=== PATIENT | male | born 1985 | race Caucasian/White ===

== ENCOUNTER 2018-05-13 06:25 | Emergency (ER) | payer SELFPAY ==
[~2018-05-13] VITALS: Ht 190.5 cm; Wt 127.0 kg
[2018-05-13] MEDS ORDERED: HYDROMORPHONE 1 MG/1 ML DISP.SYRIN ONE (06:40)
[2018-05-13] MEDS ORDERED: ONDANSETRON 4 MG/2 ML VIAL ONE (06:40)
[2018-05-13] MEDS ORDERED: HYDROMORPHONE 1 MG/1 ML DISP.SYRIN IM ONE (06:45)
[2018-05-13] MEDS ORDERED: ONDANSETRON 4 MG/2 ML VIAL IM ONE (06:45)
--- NOTE | 2018-05-13 06:45 | NUR ---
Patient is AAOx4. Patient speaking in complete sentences, speech is clear. No neurologic deficits. Patient comes in with c/o R shoulder pain, and lower back pain s/p slipping outside of his house while taking out the trash around [id number] last night. Pain is 10/10. LROM in RUE. Patient ambulated with stable gait. Respirations are even and unlabored. No SOB, cough, or congestion. No cardiovascular distress noted. All pulses present and palpable. No GI/ distress. Patient is in bed with side rails up x2, and in the lowest setting. Fall precautions initiated per protocol.
--- NOTE | 2018-05-13 07:09 | NUR ---
Patient discharged to home in stable conditon. Written and verbal after care instructions given. Patient verbalizes understanding of instructions. Ambulated from ER with stable gait. All belongings with patient.
[2018-05-13 07:10] VITALS: BP 121/78
== END 2018-05-13 07:10 | disposition home or self-care (01) ==
LOC: ER 06:27
DX: M25.511 Pain in right shoulder (principal); M54.5 Low back pain; Z88.8 Allergy status to other drugs, medicaments and biological substances; W10.9XXA Fall (on) (from) unspecified stairs and steps, initial encounter; Y93.89 Activity, other specified; Y92.89 Other specified places as the place of occurrence of the external cause; Y99.8 Other external cause status
CPT/HCPCS: 72100; 73020; 96372 ×2; 99283; J1170; J2405; A4663

== ENCOUNTER 2022-08-22 20:04 | Emergency (ER) | payer MEDICAID, OTHER ==
[~2022-08-22] VITALS: Ht 190.5 cm; Wt 108.9 kg
--- NOTE | 2022-08-22 21:10 | NUR ---
Pt is noted alert, responsive as he came in C/O Anxiety , Chest Pain, Insomnia x4days with withdrawing as he has noted been taken his medications x 5days, therefore needs Refills for Ativan 2mg PO and Subuxone 8.5mg . Pt care continue as awaits MD orders.
[2022-08-22] MEDS ORDERED: LORAZEPAM 0.5 MG TABLET PO ONE (21:30)
[2022-08-22] MEDS ORDERED: BUPRENORPHINE HCL 2 MG TAB.SUBL SL ONE ×2 (21:30→21:36)
[2022-08-22] MEDS ORDERED: BUPR1FIL3 SL (21:35)
[2022-08-22] MEDS ORDERED: NALO4SPR NS (21:35)
[2022-08-22] MEDS ORDERED: LORA2TAB95 PO (21:35)
[2022-08-22] MEDS ORDERED: LORAZEPAM 1 MG TABLET ONE (21:36)
--- NOTE | 2022-08-22 21:50 | NUR ---
Pt care continue as Ativan 2mg PO and Subutex 8mg SL given as ordered.
[2022-08-22 22:12] VITALS: BP 138/78
--- NOTE | 2022-08-22 22:13 | NUR ---
Pt is noted off the unit as he is been discharge to home with all discharge instructions given with no S/S Anxiety noted.
== END 2022-08-22 22:23 | disposition home or self-care (01) ==
LOC: ER 20:04
DX: F11.23 Opioid dependence with withdrawal (principal); F15.23 Other stimulant dependence with withdrawal; Z88.8 Allergy status to other drugs, medicaments and biological substances
CPT/HCPCS: A4663

== ENCOUNTER 2022-10-15 21:14 | Emergency (ER) | payer OTHER ==
[~2022-10-15 21:14] MED LIST: BUPR1FIL3 SL; LORA2TAB95 PO; NALO4SPR NS
--- NOTE | 2022-10-16 07:17 | NUR ---
Arrival time was 2113 yesterday (10/15/22), departed at this time because pt is still on the ER tracker.
== END 2022-10-16 07:18 | disposition left against medical advice (07) ==
LOC: ER 21:14
DX: Z53.21 Procedure and treatment not carried out due to patient leaving prior to being seen by health care provider (principal)

== ENCOUNTER 2023-04-02 02:29 | Emergency (ER) | payer OTHER ==
[~2023-04-02] VITALS: Ht 190.5 cm; Wt 104.3 kg
[2023-04-02] MEDS ORDERED: DULA0.75 SQ (02:42)
[2023-04-02] MEDS ORDERED: CEFTRIAXONE 1 G VIAL ONE (02:55)
[2023-04-02] MEDS ORDERED: SULFAMETH/TRIMETH 800/160 MG TABLET ONE (02:55)
[2023-04-02] MEDS ORDERED: HYDROCODONE/APAP 10-325 MG TABLET ONE (02:56)
[2023-04-02] MEDS ORDERED: CEPH500T PO (02:57)
[2023-04-02] MEDS ORDERED: LORA2TAB95 PO (02:57)
[2023-04-02] MEDS ORDERED: SULF1TAB48 PO (02:57)
[2023-04-02] MEDS ORDERED: HYDR-3980 PO (02:57)
[2023-04-02] MEDS ORDERED: LIDOCAINE HCL 1% 20 ML VIAL ONE (02:59)
[2023-04-02] MEDS ORDERED: HYDROCODONE/APAP 10-325 MG TABLET PO ONE (03:00)
[2023-04-02] MEDS ORDERED: CEFTRIAXONE 1 G VIAL IM ONE (03:00)
[2023-04-02] MEDS ORDERED: SULFAMETH/TRIMETH 800/160 MG TABLET PO ONE (03:00)
[2023-04-02] MEDS ORDERED: HYDROMORPHONE 1 MG/1 ML DISP.SYRIN ONE (03:14)
[2023-04-02] MEDS ORDERED: HYDROMORPHONE 1 MG/1 ML DISP.SYRIN IM ONE (03:15)
[2023-04-02] MEDS ORDERED: LORAZEPAM 1 MG TABLET ONE (03:25)
[2023-04-02] MEDS ORDERED: LORAZEPAM 0.5 MG TABLET PO ONE (03:30)
[2023-04-02 03:35] VITALS: BP 128/70; TEMP 98; O2SAT 98
== END 2023-04-02 03:38 | disposition home or self-care (01) ==
LOC: ER 02:36
DX: L03.115 Cellulitis of right lower limb (principal); K08.89 Other specified disorders of teeth and supporting structures; G89.29 Other chronic pain; G47.00 Insomnia, unspecified; E11.9 Type 2 diabetes mellitus without complications; Z88.8 Allergy status to other drugs, medicaments and biological substances; Z79.899 Other long term (current) drug therapy
CPT/HCPCS: 99284; 96372 ×2; J0696; J3490; J1170

== ENCOUNTER 2024-04-05 21:43 | Emergency (ER) | payer OTHER ==
[~2024-04-05] VITALS: Ht 190.5 cm; Wt 86.2 kg
[~2024-04-05 21:43] MED LIST changes: +CEPH500T PO; +DULA0.75 SQ; +HYDR-3980 PO; +SULF1TAB48 PO
[2024-04-06] MEDS ORDERED: CEFTRIAXONE 1 G VIAL ONE (00:22)
[2024-04-06] MEDS ORDERED: LIDOCAINE 1%-EPI 1:100,000 20 ML VIAL ONE (00:23)
[2024-04-06] MEDS ORDERED: LORAZEPAM 1 MG TABLET ONE (00:23)
[2024-04-06] MEDS ORDERED: ONDANSETRON ODT 4 MG TAB.RAPDIS ONE (00:23)
[2024-04-06] MEDS ORDERED: SODIUM BICARBONATE 4.2 % (NEUT) 5 ML VIAL ONE (00:23)
[2024-04-06] MEDS ORDERED: SULFAMETH/TRIMETH 800/160 MG TABLET ONE (00:24)
[2024-04-06] MEDS ORDERED: HYDROMORPHONE 2 MG/1 ML DISP.SYRIN ONE (00:24)
[2024-04-06] MEDS: CEFTRIAXONE 1 G VIAL IM ONE (00:25)
[2024-04-06] MEDS: LORAZEPAM 0.5 MG TABLET PO ONE (00:25)
[2024-04-06] MEDS: LIDOCAINE 1%-EPI 1:100,000 20 ML VIAL IJ ONE (00:25)
[2024-04-06] MEDS: HYDROMORPHONE 1 MG/1 ML DISP.SYRIN IM ONE ×2 (00:25→01:41)
[2024-04-06] MEDS: SULFAMETH/TRIMETH 800/160 MG TABLET PO ONE (00:26)
[2024-04-06] MEDS: ONDANSETRON ODT 4 MG TAB.RAPDIS SL ONE (00:26)
[2024-04-06] MEDS: SODIUM BICARBONATE 4.2 % (NEUT) 5 ML VIAL TP ONE (00:26)
[2024-04-06] MEDS ORDERED: OXYC-133 PO (01:30)
[2024-04-06] MEDS ORDERED: HYDROMORPHONE 1 MG/1 ML DISP.SYRIN ONE (01:39)
[2024-04-06 02:24] VITALS: BP 144/80; O2SAT 96
== END 2024-04-06 02:25 | disposition home or self-care (01) ==
LOC: ER 21:43
DX: L02.212 Cutaneous abscess of back [any part, except buttock and flank] (principal); F41.9 Anxiety disorder, unspecified; E11.9 Type 2 diabetes mellitus without complications; Z88.6 Allergy status to analgesic agent
CPT/HCPCS: 99284; 10060; 96372; J1171 ×2; J0696; J3490 ×2; A4606; A4663; Q0162

== ENCOUNTER 2024-04-07 21:01 | Emergency (ER) | payer OTHER ==
[~2024-04-07] VITALS: Ht 190.5 cm; Wt 113.4 kg
[~2024-04-07 21:01] MED LIST changes: -BUPR1FIL3 SL; -HYDR-3980 PO; -LORA2TAB95 PO; -NALO4SPR NS; +OXYC-133 PO
[2024-04-07 22:32] VITALS: BP 111/68; O2SAT 99
== END 2024-04-07 22:33 | disposition home or self-care (01) ==
LOC: ER 21:06
DX: L02.212 Cutaneous abscess of back [any part, except buttock and flank] (principal); E11.9 Type 2 diabetes mellitus without complications; F41.9 Anxiety disorder, unspecified; Z79.2 Long term (current) use of antibiotics; Z88.6 Allergy status to analgesic agent
CPT/HCPCS: A4606; A4663

== ENCOUNTER 2024-07-16 19:14 | Emergency (ER) | payer OTHER ==
[~2024-07-16] VITALS: Ht 190.5 cm; Wt 116.6 kg
[2024-07-16 19:47] LABS: BASOPHILS # (AUTO) 0.1 K/UL (0.0-0.2); BASOPHILS % (AUTO) 0.9 % (0.0-2.0); EOSINOPHILS # (AUTO) 0.1 K/uL (0.0-0.7); EOSINOPHILS % (AUTO) 1.3 % (0.0-7.0); HEMATOCRIT 39.2 % (36.7-47.1); HEMOGLOBIN 12.9 g/dL (12.5-16.3); LYMPHOCYTES % (AUTO) 27.8 % (20.5-51.5); MEAN CORPUSCULAR HEMOGLOBIN 27.8 uug (23.8-33.4); MEAN CORPUSCULAR HGB CONC 33 g/dL (32.5-36.3); MEAN CORPUSCULAR VOLUME 84.2 fL (73.0-96.2); MONOCYTES # (AUTO) 0.5 K/uL (0.1-1.30); MONOCYTES % (AUTO) 7.2 % (0.0-11.0); NEUTROPHILS # (AUTO) 4.5 K/uL (1.8-8.9); NEUTROPHILS % (AUTO) 62.8 % (38.5-71.5); PLATELET COUNT (AUTO) 208 K/uL (152-348); RED BLOOD CELL COUNT(AUTO) 4.65 MIL/uL (4.06-5.63); RED CELL DISTRIBUTION WIDTH 14.1 % (12.1-16.2); WHITE BLOOD COUNT (AUTO) 7.2 K/uL (3.6-10.2)
[2024-07-16] MEDS: IV NS 1000 ML 1,000 ML IV ONE (19:47)
[2024-07-16 19:53] LABS: ACETONE, SERUM NEGATIVE (NEGATIVE)
[2024-07-16 19:58] LABS: ALANINE AMINOTRANSFERASE 43 U/L (16-63); ALBUMIN 3.2 g/dL (3.4-5.0); ALKALINE PHOSPHATASE 106 U/L (50-136); ASPARTATE AMINOTRANSFERASE 19 U/L (15-37); BILIRUBIN,TOTAL 0.3 mg/dL (0.2-1.0); CALCIUM 8.9 mg/dL (8.5-10.1); CARBON DIOXIDE 26 mmol/L (21-32); CHLORIDE 99 mmol/L (98-107); GLUCOSE 369 mg/dL (74-106); POTASSIUM 3.8 mmol/L (3.5-5.1); SODIUM SERUM 135 mmol/L (136-145); TOTAL PROTEIN, SERUM 7.9 g/dL (6.4-8.2); UREA NITROGEN, BLOOD 12 mg/dL (7-18)
[2024-07-16] MEDS ORDERED: SULF1TAB48 PO (20:42)
[2024-07-16] MEDS ORDERED: CYCL10TA9 PO (20:42)
[2024-07-16] MEDS ORDERED: DULA0.75 SQ (20:42)
[2024-07-16] MEDS: SULFAMETH/TRIMETH 800/160 MG TABLET PO ONE (20:52)
[2024-07-16] MEDS: INSULIN REGULAR, HUMAN 1000 UNIT/10 ML VIAL SQ ONE (20:59)
[2024-07-16 21:29] VITALS: TEMP 98
[2024-07-16] MEDS: ACETAMINOPHEN 500 MG TABLET PO ONE (21:29)
[2024-07-16 21:31] VITALS: BP 145/98; O2SAT 98
== END 2024-07-16 21:34 | disposition home or self-care (01) ==
LOC: ER 19:14
DX: S06.0X1A Concussion with loss of consciousness of 30 minutes or less, initial encounter (principal); S16.1XXA Strain of muscle, fascia and tendon at neck level, initial encounter; S80.02XA Contusion of left knee, initial encounter; E11.65 Type 2 diabetes mellitus with hyperglycemia; L02.811 Cutaneous abscess of head [any part, except face]; Z79.4 Long term (current) use of insulin; Z88.6 Allergy status to analgesic agent; V43.62XA Car passenger injured in collision with other type car in traffic accident, initial encounter; Y93.89 Activity, other specified; Y92.488 Other paved roadways as the place of occurrence of the external cause; Y99.8 Other external cause status
CPT/HCPCS: 99284; 96360; 10060; 80053; 82009; 82962 ×2; 85025; 73560; 96372; J1815; J7040; A4606; A4663